=== PATIENT | female | born 1995 | race Caucasian/White ===

== ENCOUNTER 2017-06-18 21:13 | Emergency (ER) | payer MEDICAID ==
[~2017-06-18] VITALS: Ht 154.9 cm; Wt 82.0 kg
[2017-06-18] MEDS ORDERED: IBUPROFEN 600MG TABLET PO ONE (23:30)
[2017-06-19 01:48] VITALS: BP 135/78
== END 2017-06-19 02:52 | disposition home or self-care (01) ==
LOC: ER 21:13
DX: S90.01XA Contusion of right ankle, initial encounter (principal); S90.31XA Contusion of right foot, initial encounter; Y04.0XXA Assault by unarmed brawl or fight, initial encounter; Y93.89 Activity, other specified; Y92.89 Other specified places as the place of occurrence of the external cause
CPT/HCPCS: 73610; 73630; 81025; 99284

== ENCOUNTER 2025-08-22 18:30 | Emergency (ER) | payer MEDICAID ==
[~2025-08-22] VITALS: Ht 157.5 cm; Wt 91.0 kg
[2025-08-22 18:48] VITALS: O2SAT 99
[2025-08-22 22:50] VITALS: BP 113/55; PULSE 61; RESP 18; TEMP 36.7; O2SAT 99
== END 2025-08-22 22:45 | disposition home or self-care (01) ==
LOC: ER 18:30
DX: Z00.00 Encounter for general adult medical examination without abnormal findings (principal); Z98.890 Other specified postprocedural states; Z18.89 Other specified retained foreign body fragments
CPT/HCPCS: 76830; 76856; 99284; Z7610